=== PATIENT | male | born 1980 | race Caucasian/White ===

== ENCOUNTER 2019-03-16 13:03 | Emergency (ER) | payer OTHER, BC ==
[~2019-03-16] VITALS: Ht 177.8 cm; Wt 81.7 kg
[2019-03-16] MEDS ORDERED: Robaxin-750750 MG PO (14:50)
== END 2019-03-16 15:10 | disposition home or self-care (01) ==
LOC: ER 13:03
DX: S09.90XA Unspecified injury of head, initial encounter (principal); V43.52XA Car driver injured in collision with other type car in traffic accident, initial encounter
CPT/HCPCS: 70450; 72125; 99284-25

== ENCOUNTER 2020-09-10 09:33 | Day surgery (SDC) | payer BC ==
[~2020-09-10] VITALS: Ht 177.8 cm; Wt 89.1 kg
[~2020-09-10 09:33] MED LIST: ADAPALENE; Azelex30 GM; CLARITIN-D 121 EAC1 PO; Robaxin-750750 MG PO; [UNRECOGNIZED DRUG - OTHER]
== END 2020-09-10 11:48 | disposition home or self-care (01) ==
LOC: ORSCSDS 09:33
PROVIDERS: Student in an Organized Health Care Education/Training Program
PROC: 0DBL8ZX Excision of Transverse Colon, Via Natural or Artificial Opening Endoscopic, Diagnostic (ICD-10-PCS; principal; 2020-09-10 10:45)
PROC: 0DBN8ZX Excision of Sigmoid Colon, Via Natural or Artificial Opening Endoscopic, Diagnostic (ICD-10-PCS; principal; 2020-09-10 10:45)
DX: Z12.11 Encounter for screening for malignant neoplasm of colon (principal); Z83.71 Family history of colonic polyps; D12.3 Benign neoplasm of transverse colon; D12.5 Benign neoplasm of sigmoid colon
CPT/HCPCS: 88305; J2704; J7120